=== PATIENT | male | born 1990 | race Caucasian/White ===

== ENCOUNTER 2018-06-01 04:27 | Emergency (ER) | payer SELFPAY, OTHER ==
[2018-06-01] MEDS: IPRATROPIUM (NEB) 0.5 MG/2.5 ML AMP NEB (05:33)
[2018-06-01] MEDS: ALBUTEROL 0.083% (NEB) 2.5 MG/3 ML AMP NEB (05:33)
== END 2018-06-01 06:09 | disposition home or self-care (01) ==
LOC: FTE 04:27
DX: J30.2 Other seasonal allergic rhinitis (principal); J45.991 Cough variant asthma
CPT/HCPCS: 94664; 99283-25

== ENCOUNTER 2018-10-03 21:21 | Emergency (ER) | payer SELFPAY ==
[2018-10-04] MEDS: CEFTRIAXONE 1 GM INJ IM (03:53)
== END 2018-10-04 04:18 | disposition home or self-care (01) ==
LOC: FTE 21:21
DX: L02.31 Cutaneous abscess of buttock (principal); W57.XXXA Bitten or stung by nonvenomous insect and other nonvenomous arthropods, initial encounter; Y92.9 Unspecified place or not applicable
CPT/HCPCS: 87070; 96372; 99284-25